=== PATIENT | male | born 1995 | race Caucasian/White ===

== ENCOUNTER 2018-05-28 21:47 | Emergency (ER) | payer SELFPAY ==
[~2018-05-28] VITALS: Ht 167.6 cm; Wt 105.1 kg
[2018-05-28 21:49] VITALS: BP 146/71; PULSE 85; RESP 19; Ht 167.6 cm; Wt 105.1 kg
--- NOTE | 2018-05-28 22:50 | ERD ---
ER Documentation Chief Complaint Chief Complaint BILATERAL EAR PAIN HPI 23-year-old male presents with complaint of bilateral difficulty hearing. States that he has been getting ear lavages but there is still some wax in the ears and he seems to unable to get out. Denies any ear pain. Denies any tinnitus, dizziness, discharge, fevers, chills. Denies medical problems. Denies allergies. ROS All systems reviewed and are negative except as per history of present illness. Medications Home Meds Active Scripts Neomycin/Polymyxin/Hydrocort* (Cortisporin* Otic) 10 Ml Susp, 4 DROP BOTH EARS QID for otitis externa for 7 Days, EA Prov:CLAUDIA GASPAR 05/28/18 Allergies Allergies: Coded Allergies: No Known Drug Allergies (Verified Allergy, Unknown, 05/28/18) PMhx/Soc Medical and Surgical Hx: pt denies Medical Hx, pt denies Surgical Hx Hx Alcohol Use: No Hx Substance Use: No Hx Tobacco Use: No Smoking Status: Current some day smoker FmHx Family History: No diabetes, No coronary disease, No other Physical Exam Vitals Vital Signs Date Temp Pulse Resp B/P (MAP) Pulse Ox O2 O2 Flow FiO2 Time Delivery Rate 05/28/18 98.2 85 19 146/71 99 21:49 (96) Physical Exam Const: No acute distress Head: Atraumatic Eyes: Normal Conjunctiva ENT: Normal External Ears, Nose and Mouth. Cerumen noted in the ears bilaterally. Mastoids are nonedematous or erythematous and nontender to palpation. Neck: Full range of motion. No meningismus. Resp: Clear to auscultation bilaterally Cardio: Regular rate and rhythm, no murmurs Abd: Soft, non tender, non distended. Normal bowel sounds Skin: No petechiae or rashes Back: No midline or flank tenderness Ext: No cyanosis, or edema Neur: Awake and alert Psych: Normal Mood and Affect Procedures/MDM MDM: Patient received bilateral ear lavage and cerumen was successfully removed. There was some suspicion for concurrent otitis externa therefore the patient was placed on Cortisporin. I have low suspicion for TM rupture, malignant otitis externa, mastoiditis, or any other emergent condition. Giron discharge patient discharged with strict ER precautions. Patient advised to follow up with PMD. All questions answered at discharge. Departure Diagnosis: Primary Impression: Otitis externa Otitis externa type: unspecified type Chronicity: acute Laterality: bilateral Qualified Codes: H60.503 - Unspecified acute noninfective otitis externa, bilateral Condition: Stable CLAUDIA GASPAR May 28, 2018 22:50
[2018-05-28] MEDS ORDERED: NPH10OT BOTH EARS (23:47)
== END 2018-05-29 00:18 | disposition home or self-care (01) ==
LOC: FTE 21:47
DX: H60.503 Unspecified acute noninfective otitis externa, bilateral (principal); F17.210 Nicotine dependence, cigarettes, uncomplicated

== ENCOUNTER → 2018-09-02 | Emergency (ER) | payer MEDICAID ==
[~2018-09-02] VITALS: Wt 105.5 kg
[~2018-09-02] MED LIST: IBUP-1542 PO; IBUPROFEN 600 MG TAB PO ONE; NPH10OT BOTH EARS
[2018-09-02 12:40] VITALS: BP 165/75; PULSE 83; RESP 18
--- NOTE | 2018-09-03 03:24 | ERD ---
ER Documentation Chief Complaint Chief Complaint r knee pain and swelling from a fall 1 week ago. no deformity noted. HPI This is a 23-year-old Maltese speaking male presents to the ED complaining of right knee swelling and pain status post fall 1 week ago. Family states patient was camping, and he was chasing after ball when he accidentally rolled on a small rock and slipped. There is no LOC or head injury. Patient states he has had pain to his knee since then. Pain has been getting progressively worse. Pain is worse with flexion. No lower extremity numbness or tingling. No lacerations or abrasions. No other concerns. ROS All systems reviewed and are negative except as per history of present illness. Medications Home Meds Active Scripts Ibuprofen* (Motrin*) 600 Mg Tab, 600 MG PO Q6H PRN for PAIN AND OR ELEVATED TEMP, #30 TAB Prov:TONY GONZALEZ PA-C 09/02/18 Neomycin/Polymyxin/Hydrocort* (Cortisporin* Otic) 10 Ml Susp, 4 DROP BOTH EARS QID for otitis externa for 7 Days, EA Prov:CLAUDIA GASPAR 05/28/18 Allergies Allergies: Coded Allergies: No Known Drug Allergies (Verified Allergy, Unknown, 05/28/18) PMhx/Soc Hx Alcohol Use: No Hx Substance Use: No Hx Tobacco Use: No Smoking Status: Never smoker Physical Exam Vitals Vital Signs Date Temp Pulse Resp B/P (MAP) Pulse Ox O2 O2 Flow FiO2 Time Delivery Rate 09/02/18 98.6 83 18 165/75 99 12:40 (105) Physical Exam Const: No acute distress Head: Atraumatic Eyes: Normal Conjunctiva ENT: Normal External Ears, Nose and Mouth. Neck: Full range of motion. No meningismus. Lower Extremity - right Skin: No laceration Compartments: Soft Motor: + Pain with flexion of the knee. Sensation: Intact to light touch FDWS/MF/LF/P surfaces. Bones: + Mild tenderness palpation to the superior aspect of the knee with mild soft tissue swelling Joints: No effusion or laxity Pulses/Perfusion: 2+ DP, Capillary refill < 2 seconds Ext: No cyanosis, or edema Neur: Awake and alert Psych: Normal Mood and Affect Results 24 hrs Current Medications Medications Dose Sig/Ian Start Time Status Last (Trade) Ordered Route PRN Stop Time Admin Dose Reason Admin Ibuprofen 600 mg ONCE ONCE 09/02/18 DC 09/02/18 (Motrin) PO 17:00 16:44 09/02/18 17:01 Procedures/MDM LABS & DIAGNOSTIC IMAGING: PROCEDURE: RIGHT knee x-ray CLINICAL INDICATION: Right knee pain status post fall TECHNIQUE: 4 views of the knee were obtained. COMPARISON: None FINDINGS: There is normal mineralization. No acute fracture or dislocation is seen. No definite effusion is seen. Anterior soft tissue swelling. IMPRESSION: Anterior soft tissue swelling. No acute fracture seen. MEDICAL DECISION MAKIN-year-old male presents with right knee pain after falling onto it. X-rays negative for any acute fracture dislocation. I discussed with patient that I cannot rule out ligamentous or muscular injury. I recommended outpatient MRI. I also offered Sergio wrap and crutches the patient deferred. He is otherwise neurovascularly intact. No evidence of compartment syndrome, neurologic injury, vascular injury, open joint, open fracture, tendon laceration, or foreign body. Recommended other follow-up, strict return precautions were discussed. PRESCRIPTIONS: Ibuprofen SPECIALIST FOLLOW UP RECOMMENDED: Ortho Patient has been advised to follow up with primary care in 1-2 days. Departure Diagnosis: Primary Impression: Knee injury Encounter type: initial encounter Laterality: right Qualified Codes: S89.91XA - Unspecified injury of right lower leg, initial encounter Condition: Stable Patient Instructions: Knee Sprain Referrals: [facility] [place] YOU HAVE RECEIVED A MEDICAL SCREENING EXAM AND THE RESULTS INDICATE THAT YOU DO NOT HAVE A CONDITION THAT REQUIRES URGENT TREATMENT IN THE EMERGENCY DEPARTMENT. FURTHER EVALUATION AND TREATMENT OF YOUR CONDITION CAN WAIT UNTIL YOU ARE SEEN IN YOUR DOCTORS OFFICE WITHIN THE NEXT 1-2 DAYS. IT IS YOUR RESPONSIBILITY TO MAKE AN APPOINTMENT FOR [facility]. IF YOU HAVE A PRIMARY DOCTOR --you should call your primary doctor and schedule and appointment IF YOU DO NOT HAVE A PRIMARY DOCTOR YOU CAN CALL OUR PHYSICIAN REFERRAL HOTLINE AT . IF YOU CAN NOT AFFORD TO SEE A PHYSICIAN YOU CAN CHOSE FROM THE FOLLOWING [facility] INSTITUTIONS: [facility] [address] [place] [address] [facility] [address] [place] [address] [facility] [address] [place] [address] [facility] 7 a.m.- 11 p.m. Every Day of the Week NO APPOINTMENT OR AUTHORIZATION NEEDED Additional Instructions: Paciente aconseja volver a Departamento de urgencias inmediatamente para sntomas nuevos o que empeoran . Paciente aconseja posteriores con el PCP en 1-2 de león. Si el paciente no tiene ninguna de atencin primaria pueden seguir con [facility] [id number] [place] [id number] [facility] + [address] [address] TONY GONZALEZ PA-C Sep 03, 2018 03:24
== END | disposition home or self-care (01) ==
LOC: FTE 12:34
DX: S89.91XA Unspecified injury of right lower leg, initial encounter (principal); W01.0XXA Fall on same level from slipping, tripping and stumbling without subsequent striking against object, initial encounter; Y92.9 Unspecified place or not applicable
CPT/HCPCS: 73562; Z7502; Z7610